=== PATIENT | male | born 1990 | race Caucasian/White ===

== ENCOUNTER 2021-04-10 17:03 | Emergency (ER) | payer MEDICAID, SELFPAY ==
[2021-04-10 17:04] VITALS: BP 175/82; PULSE 96; RESP 16; TEMP 37.6; O2SAT 98; BMI 40.6
--- NOTE | 2021-04-10 18:57 | EX.ED.DYSGE1 ---
HPI History of Present Illness Chief Complaint: Other, Pain/Inj Informant: patient Narrative Narrative: Patient is a 30-year-old male with history of hypertension and diabetes mellitus presenting with right-sided rib pain. Patient states after mowing the lawn on Friday, 4 days ago he was sneezing. States he had some mild pain on his right ribs. He was coughing this morning when he felt a pop in that area and had worsening pain. States is worse when he moves or takes a deep breath. Is better if he applies pressure to the area. He did not take anything for his pain. He notes he had something similar to this a year ago and it resolved on its own. He cannot remember what he took or what was recommended. Patient denies any other complaints at this time. Is not feel short of breath. He denies any persistent cough. He does not think he has Covid and does not want to be tested for it. He did recently travel to [place] with his . Patient has not had the Covid vaccine. PFSH PFSH Home Medications naproxen 500 mg PO BID PRN #20 tab 12/24/16 [Rx Last Taken Unknown] ibuprofen 600 mg PO Q6H PRN PRN #20 tab 04/10/21 [Rx Last Taken Unknown] Allergy/AdvReac Type Severity Reaction Status Date / Time No Known Allergies Allergy Verified 12/24/16 01:01 Social History Smoking Status: Current every day smoker ROS ROS ED Constitutional Constitutional ED: Denies chills, fatigue, fever(s) or weakness Eyes Eyes: Denies blurry vision ENT ENT ED: Denies rhinorrhea or sore throat Cardiovascular Cardiovascular: Reports chest pain; Denies palpitations Respiratory/Chest Respiratory/Chest: Denies cough or dyspnea Gastrointestinal Gastrointestinal: Denies abdominal pain, nausea or vomiting Genitourinary Genitourinary ED: Denies decreased urination or dysuria Musculoskeletal Musculoskeletal: Denies arthralgias, extremity pain or myalgias Integumentary Denies new lesions or rash Neurologic Neurologic: Denies headache(s), paresthesias or weakness Psychiatric Psychiatric: Denies anxiety or depression Hematologic/Lymphatic Hematologic/Lymphatic: Denies easy bleeding or easy bruising EXAM Physical Exam Const Vital Signs: 04/10/21 17:04 Temperature 99.7 F H Temperature Source Temporal Pulse Rate 96 Respiratory Rate 16 Blood Pressure 175/82 H Blood Pressure Mean 113 Pulse Ox 98 Oxygen Delivery Method Room Air Positive well nourished, well developed and obese General Appearance ED: well developed Nutritional Appearance: obese HEENT Reports moist mucous membranes normocephalic; Negative for trauma Mouth ED: Yes moist mucous membranes normal Eyes PERRL and EOMs intact bilaterally General Eye ED: Yes normal appearance of both eyes Pupil: PERRL Neck supple and no JVD Lymph Lymphatic: no lymphadenopathy noted Chest Wall inspection of chest normal Chest Narrative: Patient has a discrete golf ball sized area of pain over right lower ribs, anterior midclavicular line that reproduces pain. No abnormality on palpation. No crepitus appreciated. Resp normal respiratory effort, normal air movement and clear to auscultation bilaterally Cardio regular rate and regular rhythm Peripheral Pulses: pulses 2+ throughout GI non-tender and non-distended Back/Spine no CVA tenderness and normal to inspection Extremity normal to inspection and full ROM Neuro oriented x3, moves all extremities and no focal motor deficits Psych mental status grossly normal and thought process normal Skin no rashes or lesions noted and no petechiae MDM MDM MDM Narrative Medical decision making narrative: Patient evaluated for atraumatic right-sided rib pain. He felt a popping sensation and had worsening pain. He will be treated with NSAIDs. I suspect he has costochondritis versus a small rib contusion. I do not think an x-ray will slip box changer and he is not short of breath or hypoxic so I do not think he requires x-ray to rule out pneumothorax. Patient counseled on return precautions. Is counseled on deep breathing to help prevent pneumonia. He verbalizes agreement understand with this plan. He is discharged home in stable condition. Discharge Plan Triage Chief Complaint: Other, Pain/Inj ED Provider: Reina Balderas Dx/Rx/DC Orders Clinical Impression: Rib pain on right side Instructions: ED Chest Wall Pain, Costochondritis Prescriptions: New ibuprofen 600 mg tablet 600 mg PO Q6H PRN PRN (Reason: fever or pain) Qty: 20 RF: 0 No Action naproxen 500 MG tablet 500 mg PO BID PRN Qty: 20 RF: 0 Primary Care Provider: Ashu Adrian NP Referrals: Ashu Adrian NP, RECREATION ATTENDANT SUPERVISOR-C [Primary Care Provider] - Disposition Disposition: Home, Self Care
[2021-04-10] MEDS: Ibuprofen 600 MG Tablet PO (19:03)
== END 2021-04-10 19:09 | disposition home or self-care (01) ==
PROVIDERS: Emergency Provider Emergency Medicine; PCP Nurse Practitioner Family
DX: R07.81 Pleurodynia (principal); E66.9 Obesity, unspecified; F17.200 Nicotine dependence, unspecified, uncomplicated
CPT/HCPCS: 99283

== ENCOUNTER 2023-12-09 22:30 | Inpatient (IN) | payer MEDICAID, SELFPAY ==
[2023-12-09 22:31] VITALS: BP 159/120; PULSE 100; RESP 16; TEMP 36.4; O2SAT 97; BMI 47.5
[2023-12-09 22:35] VITALS: BP 159/120; PULSE 95; RESP 16; TEMP 36.4; O2SAT 97
[2023-12-09] MEDS: 0.9% Normal Saline (1000mL) 1,000 ML 999 ML IV (23:42)
[2023-12-09 23:53] LABS: Bacteria 0 SEEN /hpf (None Seen); Mucous, Urine 0 SEEN /hpf (<or=2+); Red Blood Cells-Urine 0 SEEN /hpf (0-5); Squamous Epithelial Cells - UA 0 SEEN /hpf (0-5); White Blood Cells 0 SEEN /hpf (0-5)
[2023-12-09 23:55] LABS: Absolute Lymphocyte Count 0.99 X10^3/uL (0.83-4.51); Absolute Neutrophil Count 3.8 X10^3/uL (2.0-7.7); Basophil# 0.03 X10^3/uL; Basophil% 0.6 % (0-1); Eosinophil# 0.11 X10^3/uL; Eosinophils% 2.1 % (0-5); Hematocrit 42.8 % (40-54); Hemoglobin 14.7 g/dL (13.0-16.5); Lymphocyte # 0.99 X10^3/ul (0.83-4.51); Lymphocyte % 18.7 % (19-41); Mean Corp Hgb Conc 34.3 g/dL (32-36); Mean Corpuscular Hgb 28.7 pg (27.0-32.0); Mean Corpuscular Volume 83.4 fL (80-94); Monocyte# 0.39 X10^3/uL; Monocyte% 7.4 % (0-10); NRBC Flagged by Analyzer 0 % (0-5); Neutrophil # 3.75 X10^3/uL (2.7-7.7); Neutrophil % 70.8 % (47-70); Platelet Count 166 K/mm3 (150-450); RBC Distribution Width SD 42.5 fl (35.1-43.9); Red Blood Count 5.13 M/mm3 (4.6-6.2); White Blood Count 5.3 K/mm3 (4.4-11.0)
[2023-12-09 23:58] LABS: Color, Urine Yellow (Yellow); Glucose, Dipstick 1000 mg/dl (Normal); Ketone-Dipstick Negative (Negative); Leukocyte Esterase-Dipstick Negative /ul (Negative); Nitrite-Dipstick Negative (Negative); Occult Blood-Urine Negative /ul (Negative); Protein-Dipstick Negative (Negative); Urine Bilirubin Dipstick Negative (Negative); Urine Clarity Clear (Clear); Urine Urobilinogen Normal (Normal)
[2023-12-10] VITALS (22 sets, daily range): BP systolic 110–168; BP diastolic 49–105; PULSE 68–97; RESP 11–21; TEMP 36.1–37; O2SAT 91–100; BMI 44.1
[2023-12-10 00:17] LABS: Anion Gap 11 (5-15); BUN 16 mg/dL (7-18); BUN/Creat Ratio 12.2 RATIO (10-20); Calcium,Total 9.7 mg/dL (8.5-10.1); Chloride 87 mmol/L (98-107); Creatinine, Serum 1.31 mg/dL (0.70-1.30); EST Glomerular Filtration Rate 67 mL/min (>60); Est Glom Filt Rate - Afr Amer 81 mL/min (>60); Estimated Creatinine Clearance 129.68 ml/min; Glucose 984 mg/dL (74-106); Magnesium 2.2 mg/dL (1.6-2.6); Potassium 4.5 mmol/L (3.5-5.1); Sodium Level 123 mmol/L (136-145)
[2023-12-10 00:36] LABS: Blood Gas Specimen Type VEN; O2 Delivery Device Not entered; SITE Not entered; VBG BASE EXCESS 0 mmol/L (-1.0-3.5); VBG Bicarbonate 25 mmol/L (22-26); VBG PO2 55 mmHg (25-40); VBG SO2 88 % (50-70); VBG TCO2 26 mmol/L (23-33)
[2023-12-10] MEDS: 0.9% Normal Saline (1000mL) 1,000 ML 999 ML IV (00:41)
[2023-12-10 00:44] LABS: Osmolality, Serum 324 mOsm/KG (275-295)
--- NOTE | 2023-12-10 01:27 | PCM.HP.STD ---
[facility] - General General Date of Admission: 12/10/23 Date of Service: 12/10/23 Chief Complaint: Hyperglycemia with Polyuria, Polydipsia and Extreme Fatigue. HPI Narrative JUDAH QUARLES, is a 33 M with a past medical history of tobacco abuse, morbid obesity; with BMI of 47.5 this admission and previously diagnosed DM-2 who presents to [facility] ER complaining of hyperglycemia with polyuria, polydipsia and extreme fatigue. Mr. Quarles reports his symptoms began approximately 1 to 2 weeks prior to admission with a gradual-onset of severe fatigue along with frequent urination and heavy ingestion of junk food and sweets. He went on to state that a couple of years ago one doctor told him that he had diabetes mellitus type 2 but then he saw a second physician who told him that he did not so he stopped taking all of his medications since that time. He admits to a very poor diet with frequent junk food and no attempt to limit his ingestion of high glycemic index items. He also has a positive family history of diabetes in his mother. His and a friend of the family who is a nurse told him that he was likely a diabetic and that he should come to the hospital 3 days ago but he declined because he thought his symptoms will resolve spontaneously. He denies associated fever, chills, nausea, vomiting diarrhea or constipation - but he does admit to extreme fatigue and malaise. In the ER he was diagnosed with critical hyperglycemia of 984 mg/dL present on admission with a normal pH of 7.4 and negative urine ketones and serum acetone consistent with HONK and he was then admitted to the ICU for ongoing care for stay that is expected to be greater than 48 hours [facility] Home Medications NK 12/10/23 [History Last Taken Unknown] Allergy/AdvReac Type Severity Reaction Status Date / Time No Known Allergies Allergy Verified 12/09/23 22:36 Social History Smoking Status: Current some day smoker tobacco type: cigarettes ROS ROS Narrative Review of systems: General: Patient admits to extreme fatigue and malaise but he denies fever or chills. HENT: Denies headache, denies stuffy nose, denies sore throat EYES: Denies changes in vision or discharge from eyes. Resp: Denies cough, denies shortness of breath Cardiac: Denies chest pain, palpitations or heart racing. GI: Denies abdominal pain, denies changes in bowel, had some nausea : Patient admits to frequent urination almost every 10 minutes. Extremity: Denies swelling Musculoskeletal: Feels somewhat generally weak and unwell but he denies arthralgias or myalgias. Neuro: Patient denies headache, paresthesias or focal neurologic weakness. Heme: Denies any bleeding or bruising Skin: Denies rashes Psychiatric: No complaints voiced related to uncontrolled depression or anxiety. Endocrine: Patient admits to severe polyuria and polydipsia along with polyphagia as per HPI. The rest of the 14 point ROS was negative except for positives in HPI. Vital Signs Vital Signs Vital Signs: 12/09/23 22:31 12/09/23 22:35 12/10/23 00:31 Temperature 97.5 F L 97.5 F L Temperature Source Temporal Temporal Pulse Rate 100 95 90 Respiratory Rate 16 16 18 Blood Pressure 159/120 H 159/120 H 139/91 H Blood Pressure Mean 133 133 107 Pulse Ox 97 97 94 Oxygen Delivery Method Room Air Room Air Room Air Weight Weight: 360 lb Body Mass Index (BMI) 47.5 Physical Exam Const alert, oriented x3, no apparent distress, average body habitus and healthy appearing General Appearance: cooperative HEENT normocephalic, head/scalp atraumatic and hearing grossly normal bilaterally HEENT Narrative: Mucous membranes dry. Eyes PERRL and EOMs intact bilaterally Neck no lymphadenopathy and supple Resp normal respiratory effort, no retractions, no use of accessory muscles and clear to auscultation bilaterally Cardio regular rate and regular rhythm GI normal to inspection, nondistended, normoactive bowel sounds, soft to palpation, non-tender and non-distended Extremity normal to inspection and full ROM Skin Skin Narrative: Patient has no evidence of rash. Neuro oriented x3, CN's II-XII intact bilaterally, moves all extremities and no focal motor deficits Sensorium / Orientation: awake, alert, oriented to person, oriented to place and oriented to time Speech: speech normal Motor Exam: strength 5/5 throughout Psych affect normal Results Medical Records Data Attestation: I reviewed the patient's medical records Lab / Micro Data Attestation: I reviewed the patient's lab results. 12/09/23 23:45 12/10/23 03:35 Labs: Laboratory Results - last 24 hr 12/09/23 23:45: WBC 5.3, RBC 5.13, Hgb 14.7, Hct 42.8, MCV 83.4, MCH 28.7, MCHC 34.3, RDW Std Deviation 42.5, RDW Coeff of Jovanna 14.0, Plt Count 166, MPV 12.0, Immature Gran % (Auto) 0.400, Neut % (Auto) 70.8 H, Lymph % (Auto) 18.7 L, [place] % (Auto) 7.4, Eos % (Auto) 2.1, Baso % (Auto) 0.6, Absolute Neuts (auto) 3.8, Absolute Lymphs (auto) 0.99, Nucleated RBC % 0, Sodium 123 L, Potassium 4.5, Chloride 87 L, Carbon Dioxide 25.0, Anion Gap 11, BUN 16, Creatinine 1.31 H, Estim Creat Clear Calc 129.68, Est GFR (MDRD) Af Amer 81, Est GFR (MDRD) Non-Af 67, BUN/Creatinine Ratio 12.2, Glucose 984 H*, Serum Osmolality 324 H, Calcium 9.7, Magnesium 2.2, Urine Color Yellow, Urine Clarity Clear, Urine pH 6.0, Ur Specific [place] 1.010, Urine Protein Negative, Urine Glucose (UA) 1000 H, Urine Ketones Negative, Urine Occult Blood Negative, Urine Nitrite Negative, Urine Bilirubin Negative, Urine Urobilinogen Normal, Ur Leukocyte Esterase Negative, Urine RBC 0 SEEN, Urine WBC 0 SEEN, Ur Squamous Epith Cells 0 SEEN, Urine Bacteria 0 SEEN, Urine Mucus 0 SEEN, Acetone Level NEGATIVE ABG Data ABG results: ABG 12/10/23 00:31 Specimen Type RBENT Sample Site Not entered O2 % 21.0 VBG pH 7.40 VBG pO2 55 H VBG HCO3 25 VBG Total CO2 26 VBG O2 Sat (Calc) 88 H VBG Base Excess 0 POC Mix VBG pCO2 Pt Tmp 40.0 L O2 Delivery Device Not entered Assessment & Plan Assessment/Plan (1) Hyperosmolar non-ketotic state due to type 2 diabetes mellitus: (2) Denial about severity of illness: (3) Morbid obesity with BMI of 45.0-49.9, adult: (4) Tobacco abuse: PLAN: Plan 1. HONK; with critical hyperglycemia 984 mg/dL present on admission - Admit to ICU. Continue IV insulin drip and vigorously volume resuscitate. Check BMP q. 4 hours to monitor for electrolyte shifts. Check hemoglobin A1c to objectively assess poor quality of diabetic control. Blood sugar already down to 335 mg/dL after just a few hours on the insulin drip. 2. Diabetes mellitus type 2; uncontrolled with hyperglycemia evidenced by hemoglobin A1c this admission of 9.6% and significant denial about the severity of his illness exacerbated by mixed messages from his healthcare providers more than 2 years ago complicating #1 - Keep NPO for now until HONK resolves. We will consult the clinical dietitian to help this patient with diabetic teaching about carbohydrate counting, insulin administration and helping him to overcome his denial about being diabetic. 3. Pseudohyponatremia of 123 mmol/L present on admission - Stable with near normal level after correction factor is applied. 4. Morbid obesity; with BMI of 47.5 this admission complicating #1 & #2 - Weight loss will be recommended. Check TSH. 5. DVT prophylaxis - Lovenox 40 mg sq BID. Total time: Approximately 55 minutes. Charges/Coding Visit Charges Inpatient E&M: 82753 Init Hosp L2
--- NOTE | 2023-12-10 01:51 | EX.ED.DYSGE1 ---
HPI History of Present Illness Chief Complaint: Complaint Informant: patient and spouse/S.O. Narrative Narrative: Patient is a 33-year-old male who reports no significant past medical history. He states that over the past 1 to 2 weeks he has had increased thirst and increased urination. He states that he does not take any daily medications and he denies any [id number] supplements. He reports that no matter how much he drinks he still feels like he has [place]. He reports frequency of urination but denies any dysuria or penile discharge or concern for STD. He does state that he was seeing a family doctor that informed him he was diabetic and had them on medications for which she was having adverse effects from so therefore he stopped them and saw a new doctor. Reportedly a new doctor informed him he was not diabetic and therefore he did not resume any type of medication. He states that with the frequency of urination and thirst he is also had generalized fatigue and just an unwell sensation and secondary to his comes in for evaluation. PFSH PFS Home Medications NK 12/10/23 [History Last Taken Unknown] Allergy/AdvReac Type Severity Reaction Status Date / Time No Known Allergies Allergy Verified 12/09/23 22:36 Social History Smoking Status: Current some day smoker tobacco type: cigarettes ROS ROS ED Constitutional Constitutional ED: Denies chills or fever(s) Eyes Eyes: Reports blurry vision ENT ENT ED: Denies rhinorrhea or sore throat Cardiovascular Cardiovascular: Denies chest pain, palpitations or racing heartbeat Respiratory/Chest Respiratory/Chest: Denies cough or dyspnea Gastrointestinal Gastrointestinal: Denies abdominal pain, diarrhea, nausea or vomiting Genitourinary Genitourinary ED: Reports urinary frequency; Denies dysuria Musculoskeletal Musculoskeletal: Reports myalgias Integumentary Denies rash Neurologic Neurologic: Denies headache(s) Hematologic/Lymphatic Hematologic/Lymphatic: Denies easy bleeding or easy bruising EXAM Physical Exam Const Vital Signs: 12/09/23 22:31 12/09/23 22:35 12/10/23 00:31 Temperature 97.5 F L 97.5 F L Temperature Source Temporal Temporal Pulse Rate 100 95 90 Respiratory Rate 16 16 18 Blood Pressure 159/120 H 159/120 H 139/91 H Blood Pressure Mean 133 133 107 Pulse Ox 97 97 94 Oxygen Delivery Method Room Air Room Air Room Air 12/10/23 02:00 Temperature Temperature Source Pulse Rate 91 Respiratory Rate 18 Blood Pressure 168/99 H Blood Pressure Mean 122 Pulse Ox 96 Oxygen Delivery Method Room Air Positive well nourished, well developed and obese General Appearance ED: well developed; Negative for pallor Nutritional Appearance: obese HEENT Reports dry mucous membranes HEENT Narrative: Mucous membranes are dry and tacky No tongue or lip swelling no oral lesions no airway edema or compromise No signs of infection noted in the posterior pharynx Mouth ED: Yes dry mucous membranes Mouth: dry mucous membranes Eyes PERRL and EOMs intact bilaterally General Eye ED: Negative for scleral icterus Neck supple Neck Narrative: No nuchal rigidity or meningeal signs noted Chest Wall palpation of chest normal Resp normal respiratory effort and clear to auscultation bilaterally Cardio regular rate and regular rhythm Rate: other Other Details: Heart is regular rate and rhythm without murmurs rubs or gallops GI normal to inspection, nondistended, normoactive bowel sounds, non-tender, non-distended and no masses GI Narrative: No voluntary guarding or rigidity or pulsatile mass Auscultation: normoactive bowel sounds Palpation: soft Back/Spine no CVA tenderness Extremity normal to inspection Extremity Narrative: No asymmetric edema no pitting edema negative Homans' sign bilaterally Neuro oriented x3 and CN's II-XII intact bilaterally Sensorium / Orientation: alert Motor Exam: strength 5/5 throughout Psych mental status grossly normal Skin no rashes or lesions noted, no wounds and skin turgor normal General Skin Exam: Negative for jaundice or pallor MDM MDM MDM Narrative Medical decision making narrative: Patient arrived to the ER hypertensive but otherwise with stable vitals. He reported polydipsia and polyuria and there is concern for new onset diabetes versus DKA versus HHS versus UTI versus acute kidney injury. Secondary to his basic labs were obtained. Labs do show elevation to his glucose at 984 consistent with diabetes. However his anion gap and bicarb are normal going against DKA. A serum acetone was obtained which was also normal and venous blood gas showed a pH of 7.4. However his serum osmolality is elevated at 324 consistent with HHS. Based on his elevated blood sugar as well as serum osmolality indicating HHS I do feel he would benefit from admission and therefore the case was discussed with the hospitalist. He agrees that patient needs to be admitted at this time for continued treatment and therefore he was started on insulin drip and placed in the ICU for further care. History & Record Review Discussion w/independent historian: Patient and Significant other Lab Data Attestation: I reviewed the patient's lab results. Labs: Laboratory Results - last 24 hr 12/09/23 12/09/23 23:45 23:45 WBC 5.3 RBC 5.13 Hgb 14.7 Hct 42.8 MCV 83.4 MCH 28.7 MCHC 34.3 RDW Std Deviation 42.5 RDW Coeff of Jovanna 14.0 Plt Count 166 MPV 12.0 Immature Gran % (Auto) 0.400 Neut % (Auto) 70.8 H Lymph % (Auto) 18.7 L [place] % (Auto) 7.4 Eos % (Auto) 2.1 Baso % (Auto) 0.6 Absolute Neuts (auto) 3.8 Absolute Lymphs (auto) 0.99 Nucleated RBC % 0 Sodium 123 L Potassium 4.5 Chloride 87 L Carbon Dioxide 25.0 Anion Gap 11 BUN 16 Creatinine 1.31 H Estim Creat Clear Calc 129.68 Est GFR (MDRD) Af Amer 81 Est GFR (MDRD) Non-Af 67 BUN/Creatinine Ratio 12.2 Glucose 984 H* Hemoglobin A1c 9.6 H Serum Osmolality 324 H Calcium 9.7 Magnesium 2.2 Cancelled TSH 1.41 Urine Color Yellow Urine Clarity Clear Urine pH 6.0 Ur Specific [place] 1.010 Urine Protein Negative Urine Glucose (UA) 1000 H Urine Ketones Negative Urine Occult Blood Negative Urine Nitrite Negative Urine Bilirubin Negative Urine Urobilinogen Normal Ur Leukocyte Esterase Negative Urine RBC 0 SEEN Urine WBC 0 SEEN Ur Squamous Epith Cells 0 SEEN Urine Bacteria 0 SEEN Urine Mucus 0 SEEN Acetone Level NEGATIVE ABG Data ABG results: ABG 12/10/23 00:31 Specimen Type BRENT Sample Site Not entered O2 % 21.0 VBG pH 7.40 VBG pO2 55 H VBG HCO3 25 VBG Total CO2 26 VBG O2 Sat (Calc) 88 H VBG Base Excess 0 POC Mix VBG pCO2 Pt Tmp 40.0 L O2 Delivery Device Not entered Management Discussion w/another healthcare provider: Hospitalist Critical Care Time Critical Care Time: Yes Critical care time (excluding procedures): Discussing w/Patient &/or Family/Tax Analyst, Discussing w/Consultants and - (Please note critical care time of 33 minutes) Discharge Plan Dx/Rx/DC Orders Clinical Impression: Hyperosmolar hyperglycemic state (HHS), Morbid obesity with BMI of 45.0-49.9, adult, Type 2 diabetes mellitus, Hypertension Disposition Disposition: Acute Care Hospital [facility]
[2023-12-10] MEDS: Insulin Lispro 100 UNIT in 0.9% Normal Saline (100mL Bag) 99 ML 16.3 UNIT CONT INF (01:52)
[2023-12-10 02:07] LABS: Hemoglobin A1c 9.6 % (3.8-5.6)
[2023-12-10 02:09] LABS: Thyroid Stim Hormone (TSH) 1.41 uIU/mL (0.358-3.74)
[2023-12-10 03:30] LABS: Bedside Glucose 453 mg/dL (74-106)
[2023-12-10 04:15] LABS: Anion Gap 8 (5-15); BUN 15 mg/dL (7-18); BUN/Creat Ratio 15.7 RATIO (10-20); Calcium,Total 9.8 mg/dL (8.5-10.1); Chloride 97 mmol/L (98-107); Creatinine, Serum 0.95 mg/dL (0.70-1.30); EST Glomerular Filtration Rate 97 mL/min (>60); Est Glom Filt Rate - Afr Amer 117 mL/min (>60); Estimated Creatinine Clearance 178.83 ml/min; Glucose 428 mg/dL (74-106); Potassium 3.5 mmol/L (3.5-5.1); Sodium Level 133 mmol/L (136-145)
[2023-12-10 04:52] LABS: Bedside Glucose 335 mg/dL (74-106)
[2023-12-10] MEDS: Potassium Chloride 10mEq/100mL 10 MEQ/100 ML IV.SOLN. 100 MEQ IV BOLUS ×4 (06:05→09:25)
[2023-12-10 06:13] LABS: Bedside Glucose 307 mg/dL (74-106)
[2023-12-10 07:35] LABS: Bedside Glucose 269 mg/dL (74-106)
[2023-12-10 08:33] LABS: Bedside Glucose 243 mg/dL (74-106)
[2023-12-10 09:39] LABS: Bedside Glucose 271 mg/dL (74-106)
[2023-12-10] MEDS: Ibuprofen 400 MG Tablet PO (10:37)
[2023-12-10] MEDS: KCL 20MEQ in 0.9% NS 20 MEQ/1,000 ML IV.SOLN. 150 MEQ IV ×2 (10:37→17:14)
[2023-12-10] MEDS: Famotidine 200 MG/20 ML MDV 20 MG in 0.9% Normal Saline (Pres. free 8 ML 300 MG IV ×2 (10:40→21:36)
[2023-12-10] MEDS: Enoxaparin 40 MG/0.4 ML Syringe SC ×2 (10:40→21:35)
[2023-12-10 10:48] LABS: Bedside Glucose 230 mg/dL (74-106)
[2023-12-10 11:55] LABS: Bedside Glucose 192 mg/dL (74-106)
[2023-12-10] MEDS: Insulin Glargine-YFGN 100 UNIT/ML Pen 10 UNIT SC ×2 (13:50→21:35)
[2023-12-10 14:15] LABS: Bedside Glucose 270 mg/dL (74-106)
[2023-12-10] MEDS: Insulin Lispro 100 UNIT/ML INSULN.PEN SC ×3 (16:28→21:34)
[2023-12-10 16:38] LABS: Bedside Glucose 326 mg/dL (74-106)
[2023-12-10] MEDS: 0.9% Normal Saline (1000mL) 1,000 ML 100 ML IV (19:26)
[2023-12-10 22:06] LABS: Bedside Glucose 222 mg/dL (74-106)
[2023-12-11] VITALS: BP 127/78; PULSE 82; RESP 18; TEMP 36.3; O2SAT 93
[2023-12-11 05:20] VITALS: BMI 42.7
[2023-12-11 06:00] VITALS: BP 132/75; PULSE 80; RESP 14; TEMP 36.6; O2SAT 95
[2023-12-11] MEDS: 0.9% Normal Saline (1000mL) 1,000 ML 100 ML IV (06:25)
[2023-12-11] MEDS: Insulin Lispro 100 UNIT/ML INSULN.PEN SC ×4 (06:50→11:38)
[2023-12-11 07:15] LABS: Bedside Glucose 271 mg/dL (74-106)
[2023-12-11 08:43] LABS: Absolute Lymphocyte Count 1.19 X10^3/uL (0.83-4.51); Absolute Neutrophil Count 3.5 X10^3/uL (2.0-7.7); Basophil# 0.04 X10^3/uL; Basophil% 0.8 % (0-1); Eosinophil# 0.15 X10^3/uL; Eosinophils% 2.9 % (0-5); Hematocrit 42.5 % (40-54); Hemoglobin 14.4 g/dL (13.0-16.5); Lymphocyte # 1.19 X10^3/ul (0.83-4.51); Lymphocyte % 23.2 % (19-41); Mean Corp Hgb Conc 33.9 g/dL (32-36); Mean Corpuscular Hgb 28.1 pg (27.0-32.0); Mean Platelet Vol. 11.5 fl (6.2-12.0); Monocyte# 0.27 X10^3/uL; Monocyte% 5.3 % (0-10); NRBC Flagged by Analyzer 0 % (0-5); Neutrophil # 3.46 X10^3/uL (2.7-7.7); Neutrophil % 67.4 % (47-70); Platelet Count 183 K/mm3 (150-450); Red Blood Count 5.12 M/mm3 (4.6-6.2); White Blood Count 5.1 K/mm3 (4.4-11.0)
[2023-12-11 09:00] VITALS: BP 117/93; PULSE 93; RESP 19; TEMP 36.6; O2SAT 98
[2023-12-11 09:01] LABS: ALB/GLOB Ratio 1.1 RATIO (0.9-2.4); AST(SGOT) 64 U/L (15-37); Alanine Aminotransfer ALT/SGPT 105 U/L (16-61); Albumin, Serum 3.5 g/dL (3.2-5.0); Alkaline Phosphatase 87 U/L (45-117); Anion Gap 6 (5-15); BUN 11 mg/dL (7-18); BUN/Creat Ratio 14.9 RATIO (10-20); Calcium,Total 8.4 mg/dL (8.5-10.1); Chloride 106 mmol/L (98-107); Creatinine, Serum 0.74 mg/dL (0.70-1.30); EST Glomerular Filtration Rate 131 mL/min (>60); Est Glom Filt Rate - Afr Amer 158 mL/min (>60); Estimated Creatinine Clearance 216.36 ml/min; Globulin 3.3 g/dL (2.2-4.2); Glucose 272 mg/dL (74-106); Phosphorus 2.4 mg/dL (2.5-4.9); Potassium 3.7 mmol/L (3.5-5.1); Protein, Total 6.8 g/dL (6.4-8.2); Sodium Level 137 mmol/L (136-145)
[2023-12-11] MEDS: Insulin Glargine-YFGN 100 UNIT/ML Pen 15 UNIT SC (09:21)
[2023-12-11] MEDS: Famotidine 200 MG/20 ML MDV 20 MG in 0.9% Normal Saline (Pres. free 8 ML 300 MG IV (09:21)
[2023-12-11] MEDS: Enoxaparin 40 MG/0.4 ML Syringe SC (09:22)
--- NOTE | 2023-12-11 09:24 | PCM.DC ---
Discharge Instructions Diet Discharge Diet: Low fat / Low cholesterol, 2000 Calorie Control Diet and Carb Control Diet Activity Discharge Activity: Return to Normal Activity Dressing / Incision Call your doctor if you observe: Fever of 101 or Higher, Shortness of breath, Dizziness, Fainting spells, Swelling in the ankles and Chest pain Follow Up Care Test Results: Test results from this visit will be discussed in further detail at your follow-up appointment, if applicable. Discharge Plan Admission Admit Date/Time: 12/10/23 01:38 Attending Provider: Johnathan Mraie Primary Care Provider: Care Physician,Viki Primary Consulting Providers: [place] Instructions Patient Instructions: Diabetes Food Shop Meals Prep, Diabetes Food Tips Ch, Diabetes Care Ch, Diabetes Exercise Program Start, Diabetes Carbs Fats Protein Additional Instructions / Restrictions: Follow-up with a local cardiac rehabilitation specialist Discharge Orders/Prescriptions Prescriptions: New insulin glargine-yfgn 100 unit/mL (3 mL) Insulin Pen 30 unit subcut DAILY 30 Days Qty: 9 0RF metformin 500 mg tablet extended release 24 hr 500 mg PO DAILY Qty: 30 0RF No Action NK Other Ambulatory Orders: Glucometer (Routine) Timeframe: 1 Day Location: Determined by Patient Ordered By: Dr. Johnathan Marie Referrals / Follow Up: Care Physician,No Primary [Primary Care Provider] - Disposition Disposition (needs filled in before D/C Order can be placed): Home, Self Care
--- NOTE | 2023-12-11 10:03 | CASEMGMT ---
JANEEN JOHNSON Assessment Face to Face with patient for initial transition planning/care coordination assessment. JANEEN JOHNSON introduced self and role at [facility], pt voices understanding. Pt is A&Ox4 and is resting comfortably in bed and is calm. Care providers, pharmacy, and demographics verified. Admitting dx: HONK, Hyperglycemia LACE Strata: 1 PCP: No PCP. List provided Specialists: Denies. List provided with Endocrinology info. Pt advised to set up an appt with Endocrinology to better manage his DM Preferred Pharmacy: [facility] Insurance: EDITH/[employer] Prescription Benefit: Yes LNOK: Viktoria Quarles (Mom), Tootie Quarles (W) Living Arrangements: Pt lives with his and son (7) and daughter (2) in a 2 story home with 3 steps to enter ADLs/IADLs: Ind Transportation: Self, W DME: Pt states that he has a BGM at home but states that he does not know where it is at exactly. This JANEEN JOHNSON educated the pt that he can buy another BGM kit at [facility] for around 20-25$. Pt states that he plans to go buy this (if he can't find his current one) and keep better track of his BS levels. Pt denies all other DME uses or needs e/f he has a BP cuff at home. HHC/SNF: Denies history or needs Pt?s goal: Home Plan: Home today. Pt plans to buy another BGM kit if he cannot find his current BGM. Pt DC order placed. Pt has been provided with the appropriate material and information needed. Pt denies further needs and states that he feels returning home today. Dannielle Romero RN, CM
[2023-12-11 11:59] LABS: Bedside Glucose 249 mg/dL (74-106)
[2023-12-11 12:22] VITALS: BP 135/86; PULSE 84; RESP 15; O2SAT 97
--- NOTE | 2023-12-11 16:46 | PCM.DC.SUM ---
Providers Date of Admission: 12/10/23 Primary Care Physician: No Primary Care Phys Reason For Visit: HONK; WITH HYPERGLYCEMIA OF 983 MG/DL PRESENT ON Diagnosis Discharge Diagnosis (1) Hyperosmolar non-ketotic state due to type 2 diabetes mellitus: Status: Acute Code(s): E11.00 - Type 2 diabetes mellitus with hyperosmolarity without nonketotic hyperglycemic-hyperosmolar coma ([facility]) (2) Denial about severity of illness: Status: Acute (3) Morbid obesity with BMI of 45.0-49.9, adult: Status: Acute Code(s): E66.01 - Morbid (severe) obesity due to excess calories; Z68.42 - Body mass index [BMI] 45.0-49.9, adult (4) Tobacco abuse: Status: Acute Code(s): Z72.0 - Tobacco use Medications at Discharge Home Medications NK 12/10/23 insulin glargine-yfgn 100 unit/mL (3 mL) subcutaneous pen 30 unit (0.3 mL) subcut DAILY 30 days #9 mL 12/11/23 metformin 500 mg tablet,extended release 24 hr 500 mg PO DAILY #30 tabs 12/11/23 Hospital Course Operations None Procedures None Summary of Care Provided Minutes Spent on Discharge: 32 Hospital Course: Per HPI: JUDAH ADAMS, is a 33 M with a past medical history of tobacco abuse, morbid obesity; with BMI of 47.5 this admission and previously diagnosed DM-2 who presents to [facility] ER complaining of hyperglycemia with polyuria, polydipsia and extreme fatigue. Mr. Adams reports his symptoms began approximately 1 to 2 weeks prior to admission with a gradual-onset of severe fatigue along with frequent urination and heavy ingestion of junk food and sweets. He went on to state that a couple of years ago one doctor told him that he had diabetes mellitus type 2 but then he saw a second physician who told him that he did not so he stopped taking all of his medications since that time. He admits to a very poor diet with frequent junk food and no attempt to limit his ingestion of high glycemic index items. He also has a positive family history of diabetes in his mother. His and a friend of the family who is a nurse told him that he was likely a diabetic and that he should come to the hospital 3 days ago but he declined because he thought his symptoms will resolve spontaneously. He denies associated fever, chills, nausea, vomiting diarrhea or constipation - but he does admit to extreme fatigue and malaise. In the ER he was diagnosed with critical hyperglycemia of 984 mg/dL present on admission with a normal pH of 7.4 and negative urine ketones and serum acetone consistent with HONK and he was then admitted to the ICU for ongoing care for stay that is expected to be greater than 48 hours Hospital Course: 1. Type 2 diabetes with hyperglycemia?33-year-old male who has had diabetes before but then states he lost some weight and was taken off his medications presents to the hospital with polyuria and polydipsia. Found to have an A1c of 9.6. He was initially placed on insulin drip however this was discontinued fairly quickly as he did not have any significant metabolic acidosis. He was managed with long-acting insulin as well as sliding scale insulin. Blood sugars on the day of discharge were stable in the low to mid 200s and I discussed with him the plan for possible discharge today. He expressed understanding of the benefits of going home and he would like to go home today. His pseudohyponatremia did resolve and on discharge was 137. Lantus 30 units during the day as well as metformin. I do recommend that he follow-up with PCP for management of his diabetes and he was given a prescription for new glucometer and requested to check his blood sugars twice a day. He did have dietary education by both myself as well as the in-house hot dip plating supervisor. I also counseled him extensively on weight loss interventions including diet and exercise. Physical Exam Narrative General: Alert, Oriented x3, Cooperative, No apparent distress, morbidly obese HEENT: Atraumatic, PERRLA, EOMI, Normocephalic Oral: Moist Mucosa Neck: Supple, No JVD Lungs: Diminished, Normal air movement, No rhonchi, No wheeze, No rales Cardiovascular: Regular rate, Regular Rhythm, Normal S1, Normal S2, No murmurs Abdomen: Soft, Non Tender, Non-Distended, No Hepato-splenomegaly Extremities: No edema, Capillary Refill Less than 3 Seconds Skin: No rashes, No breakdown Musculoskeletal: No Tenderness to Palpation of Joints or Extremities Neurological: No focal neurological deficits, Motor Exam 5/5 strength throughout, Sensory exam intact to light touch and pain Psych/Mental Status: Normal Affect, Appropriate Weight / BMI Weight Weight: 324 lb 1.272 oz Body Mass Index (BMI) 42.7 ABG / Lab / Microbiology Data 12/11/23 08:25 12/11/23 07:42 Laboratory: Laboratory Results - last 24 hr 12/10/23 21:33: POC Glucose 222 H 12/11/23 06:44: POC Glucose 271 H 12/11/23 07:42: WBC Cancelled, Corrected WBC Cancelled, RBC Cancelled, Hgb Cancelled, Hct Cancelled, MCV Cancelled, MCH Cancelled, MCHC Cancelled, RDW Std Deviation Cancelled, RDW Coeff of Jovanna Cancelled, Plt Count Cancelled, MPV Cancelled, Immature Gran % (Auto) Cancelled, Neut % (Auto) Cancelled, Lymph % (Auto) Cancelled, [place] % (Auto) Cancelled, Eos % (Auto) Cancelled, Baso % (Auto) Cancelled, Absolute Neuts (auto) Cancelled, Absolute Lymphs (auto) Cancelled, Total Counted Cancelled, Neutrophils % (Manual) Cancelled, Band Neutrophils % Cancelled, Lymphocytes % (Manual) Cancelled, Monocytes % (Manual) Cancelled, Eosinophils % (Manual) Cancelled, Basophils % (Manual) Cancelled, Metamyelocytes % Cancelled, Myelocytes % Cancelled, Promyelocytes % Cancelled, Blast Cells % Cancelled, Plasma Cell % (Manual) Cancelled, Other Cells % Cancelled, Nucleated RBC % Cancelled, Nucleated RBCs/100 WBC Cancelled, Differential Comment Cancelled, Diff Path Review Cancelled, Hypersegmented Neuts Cancelled, Atypical Lymphocytes Cancelled, Reactive Lymphocytes Cancelled, Smudge Cells Cancelled, Toxic Granulation Cancelled, Toxic Vacuolation Cancelled, Dohle Bodies Cancelled, [place] Rods Cancelled, Platelet Estimate Cancelled, Plt Morphology Comment Cancelled, RBC Morphology Cancelled 12/11/23 07:42: RBC Morphology Cancelled, Polychromasia Cancelled, Hypochromasia Cancelled, Basophilic Stippling Cancelled, Anisocytosis Cancelled, Microcytosis Cancelled, Macrocytosis Cancelled, Spherocytes Cancelled, Sickle Cells Cancelled, Target Cells Cancelled, Tear Drop Cells Cancelled, Ovalocytes Cancelled, Stomatocytes Cancelled, [place] Bodies Cancelled, [place] Cells Cancelled, Bite Cells Cancelled, Crenated Cell Cancelled, Acanthocytes (Spur) Cancelled, Rouleaux Cancelled, Schistocytes Cancelled, Sodium 137, Potassium 3.7, Chloride 106, Carbon Dioxide 25.0, Anion Gap 6, BUN 11, Creatinine 0.74, Estim Creat Clear Calc 216.36, Est GFR (MDRD) Af Amer 158, Est GFR (MDRD) Non-Af 131, BUN/Creatinine Ratio 14.9, Glucose 272 H, Calcium 8.4 L, Phosphorus 2.4 L, Total Bilirubin 0.60, AST 64 H, ALT 105 H, Alkaline Phosphatase 87, Total Protein 6.8, Albumin 3.5, Globulin 3.3, Albumin/Globulin Ratio 1.1 12/11/23 08:25: WBC 5.1, RBC 5.12, Hgb 14.4, Hct 42.5, MCV 83.0, MCH 28.1, MCHC 33.9, RDW Std Deviation 42.0, RDW Coeff of Jovanna 14.0, Plt Count 183, MPV 11.5, Immature Gran % (Auto) 0.400, Neut % (Auto) 67.4, Lymph % (Auto) 23.2, [place] % (Auto) 5.3, Eos % (Auto) 2.9, Baso % (Auto) 0.8, Absolute Neuts (auto) 3.5, Absolute Lymphs (auto) 1.19, Nucleated RBC % 0 12/11/23 11:34: POC Glucose 249 H D/C Instructions Discharge Diet: Low fat / Low cholesterol, 2000 Calorie Control Diet and Carb Control Diet Call your doctor if you observe: Fever of 101 or Higher, Shortness of breath, Dizziness, Fainting spells, Swelling in the ankles and Chest pain Meaningful Use Info Meaningful Use Meaningful Use Diagnoses (Choose all that apply): None applicable Ischemic Stroke Statin Dosing Therapy Reference: STATIN DOSE THERAPY REFERENCE: * Patients > 75 years receive moderate or high dose statin therapy. * Patients 75 years or YOUNGER should receive HIGH intensity statin dose unless contraindicated. You will be required to document reason for non-treatment if statin daily dose does not meet guidelines. HIGH DOSE STATIN THERAPY DAILY Atorvastatin > than or = to 40 mg Rosuvastatin > than or = to 20 mg Amlodipine + Atorvastatin > than or = to 2.5/40 mg Ezetimibe + Simvastatin 10/80 mg Simvastatin 80mg Discharge Plan Admission Admit Date/Time: 12/10/23 01:38 Attending Provider: Johnathan Marie Primary Care Provider: Care Physician,No Primary Consulting Providers: [place] Instructions Patient Instructions: Diabetes Food Shop Meals Prep, Diabetes Food Tips Ch, Diabetes Care Ch, Diabetes Exercise Program Start, Diabetes Carbs Fats Protein Additional Instructions / Restrictions: Follow-up with a local broke beater Discharge Orders/Prescriptions Prescriptions: New insulin glargine-yfgn 100 unit/mL (3 mL) Insulin Pen 30 unit subcut DAILY 30 Days Qty: 9 0RF metformin 500 mg tablet extended release 24 hr 500 mg PO DAILY Qty: 30 0RF No Action NK Other Ambulatory Orders: Glucometer (Routine) Timeframe: 1 Day Location: Determined by Patient Ordered By: Dr. Johnathan Marie Referrals / Follow Up: Care Physician,No Primary [Primary Care Provider] - Disposition Disposition (needs filled in before D/C Order can be placed): Home, Self Care Charges/Coding Visit Charges Inpatient E&M: 95431 Disch Hosp >30min
== END 2023-12-11 12:32 | disposition home or self-care (01) | DRG 420 ==
LOC: ED 12-10 01:51 → ICU 12-10 08:13
PROVIDERS: Admitting Provider Internal Medicine; Emergency Provider Emergency Medicine; Visit Provider Family Medicine
DX: E11.00 Type 2 diabetes mellitus with hyperosmolarity without nonketotic hyperglycemic-hyperosmolar coma (NKHHC) (principal); E66.01 Morbid (severe) obesity due to excess calories; Z68.42 Body mass index [BMI] 45.0-49.9, adult; I10 Essential (primary) hypertension; F17.210 Nicotine dependence, cigarettes, uncomplicated
CPT/HCPCS: 36415; 80048; 80053; 81001; 82009; 82803; 82962; 83036; 83735; 83930; 84100; 84443; 85025; 97802; 99283; J7030; A4216; J3490

== ENCOUNTER → 2025-03-03 | Outpatient (CLI) | payer MEDICAID, SELFPAY ==
[2025-03-03 17:55] LABS: AST(SGOT) 30 U/L (<=37); Alanine Aminotransfer ALT/SGPT 54 U/L (<=46); Albumin, Serum 4.7 g/dL (3.5-5.0); Alkaline Phosphatase 58 U/L (40-129); Anion Gap 13 (5-15); BUN 17 mg/dL (4-19); BUN/Creat Ratio 20.1 RATIO (10-20); Calcium,Total 9.6 mg/dL (7.6-11.0); Carbon Dioxide 23.3 mmol/L (21.0-32.0); Chloride 103 mmol/L (98-108); Cholesterol 206 mg/dL (<=200); Globulin 2.9 g/dL (2.2-4.2); Glucose 130 mg/dL (70-99); Low Density Lipoprotein Calc. 115 mg/dL; Potassium 4.5 mmol/L (3.3-5.1); Triglycerides 265 mg/dL; Very Low Density Lipoprotein 53 mg/dL (5-40); cholesterol:hdl ratio screen 5.36
== END | disposition home or self-care (01) ==
LOC: BIMLAB 15:06
PROVIDERS: PCP Family Medicine; Referring Provider Family Medicine; Visit Provider Family Medicine
DX: E11.9 Type 2 diabetes mellitus without complications (principal)
CPT/HCPCS: 36415; 80053; 80061